=== PATIENT | female | born 1955 | race Two or more races ===

== ENCOUNTER 2017-12-15 13:07 | Emergency (ER) | payer MEDICAID ==
[~2017-12-15] VITALS: Ht 172.7 cm; Wt 76.2 kg
[~2017-12-15 13:07] MED LIST: ALPR0.5T7 PO; AMLO10TA2 PO; ASPI81CH43 PO; GLIM4TAB42 PO; HYDR25TA35 PO; LEVO-28 PO; METO25TA5 PO; SIMV-8 PO
[2017-12-15] MEDS ORDERED: SODIUM CHLORIDE 0.9% 500 ML IV ONE (14:18)
[2017-12-15 14:46] LABS: Basophils # (auto) 0.1 uL; Basophils % (auto) 0.7 % (0.0-2.0); Eosinophils # (auto) 0.8 uL; Eosinophils % (auto) 7.1 % (0.0-7.0); Hematocrit 30.8 % (36.0-46.0); Hemoglobin 10.1 g/dL (12.2-16.2); Lymphocytes # (auto) 2.1 uL; Lymphocytes % (auto) 17.2 % (10.0-50.0); Mean Corpuscular Hemoglobin 31.3 pg (28.0-32.0); Mean Corpuscular Hgb Conc. 32.7 g/dL (32.0-36.0); Mean Corpuscular Volume 95.7 fL (80.0-100.0); Monocytes # (auto) 0.8 uL; Monocytes % (auto) 6.4 % (0.0-12.0); Neutrophils # (auto) 8.2 uL; Neutrophils % (auto) 68.6 % (37.0-80.0); Platelet Count (auto) 336 10^3/uL (140-450); Red Blood Cells 3.22 10^6/uL (4.0-5.20); Red Cell Distribution Width 14.5 % (11.8-14.3)
[2017-12-15 15:10] LABS: Alanine Aminotransferase 14 U/L (13-56); Albumin 3.1 g/dL (3.4-5.0); Alkaline Phosphatase 274 U/L (45-117); Anion Gap 17 (5-15); Aspartate Aminotransferase 9 U/L (15-37); BUN/Creatinine Ratio 9.4; Bilirubin, Total 0.4 mg/dL (0.2-1.0); Blood Urea Nitrogen 73 mg/dL (7-18); Calcium 7.9 mg/dL (8.5-10.1); Carbon Dioxide 23 mmol/L (21-32); Chloride 100 mmol/L (98-107); GFR African American 7 mL/min; GFR Non-African American 6 mL/min; Glucose 90 mg/dL (74-106); Magnesium 2.8 mg/dL (1.6-2.6); Potassium 5.1 mmol/L (3.5-5.1); Sodium 140 mmol/L (136-145); Total Protein 8.2 g/dL (6.4-8.2)
[2017-12-15 19:35] VITALS: BP 157/71
== END 2017-12-15 19:46 | disposition home or self-care (01) ==
LOC: ER 13:07 → EDBD 13:07 → ER 19:46
DX: S70.01XA Contusion of right hip, initial encounter (principal); I16.0 Hypertensive urgency; N18.6 End stage renal disease; J44.9 Chronic obstructive pulmonary disease, unspecified; I50.9 Heart failure, unspecified; E78.5 Hyperlipidemia, unspecified; Z90.49 Acquired absence of other specified parts of digestive tract; Z79.82 Long term (current) use of aspirin; X58.XXXA Exposure to other specified factors, initial encounter; Y93.89 Activity, other specified; Y92.89 Other specified places as the place of occurrence of the external cause; Y99.8 Other external cause status
CPT/HCPCS: 36415; 71045; 73502; 80053; 83735; 84484; 85025; 93005; 94761

== ENCOUNTER 2018-03-30 14:39 | Inpatient (IN) | payer MEDICARE, MEDICAID ==
[~2018-03-30] VITALS: Ht 152.4 cm; Wt 77.9 kg
[~2018-03-30 14:39] MED LIST changes: -ALPR0.5T7 PO; +CARB25TA75 PO; +CARV12.544 PO; +CINA30TA2 PO; +FLUO20CA19 PO; +FURO40TA4 PO; +GABA300C10 PO; -HYDR25TA35 PO; +INSU70IN3 SC; -LEVO-28 PO; +LIDO2.5C3 TOP; +LORA2TAB89 PO; +LOSA50TA6 PO; +METO2.5T11 PO; -METO25TA5 PO; +OLAN5TAB30 PO; +SEVE800T8 PO; +TOPI50TA53 PO; +TRAM50TA2 PO
[2018-03-30 15:42] LABS: Basophils # (auto) 0.1 uL; Basophils % (auto) 0.6 % (0.0-2.0); Eosinophils # (auto) 0.7 uL; Eosinophils % (auto) 5.5 % (0.0-7.0); Hematocrit 32.3 % (36.0-46.0); Hemoglobin 10.8 g/dL (12.2-16.2); Lymphocytes # (auto) 1.6 uL; Lymphocytes % (auto) 12.6 % (10.0-50.0); Mean Corpuscular Hemoglobin 31.6 pg (28.0-32.0); Mean Corpuscular Hgb Conc. 33.3 g/dL (32.0-36.0); Mean Corpuscular Volume 94.8 fL (80.0-100.0); Monocytes # (auto) 0.7 uL; Monocytes % (auto) 5.4 % (0.0-12.0); Neutrophils # (auto) 9.7 uL; Neutrophils % (auto) 75.9 % (37.0-80.0); Platelet Count (auto) 295 10^3/uL (140-450); Red Blood Cells 3.41 10^6/uL (4.0-5.20); Red Cell Distribution Width 15.4 % (11.8-14.3); White Blood Cell 12.8 10^3/uL (4.4-10.8)
[2018-03-30 16:00] LABS: Alanine Aminotransferase 9 U/L (13-56); Albumin 3.4 g/dL (3.4-5.0); Alkaline Phosphatase 429 U/L (45-117); Anion Gap 10 (5-15); Aspartate Aminotransferase 8 U/L (15-37); BUN/Creatinine Ratio 7.7; Bilirubin, Total 0.3 mg/dL (0.2-1.0); Blood Urea Nitrogen 37 mg/dL (7-18); Carbon Dioxide 30 mmol/L (21-32); Chloride 97 mmol/L (98-107); GFR African American 12 mL/min; GFR Non-African American 10 mL/min; Glucose 101 mg/dL (74-106); Potassium 4.3 mmol/L (3.5-5.1); Sodium 137 mmol/L (136-145); Total Protein 8.8 g/dL (6.4-8.2)
[2018-03-30] MEDS ORDERED: cloNIDine HCL 0.1 MG TAB PO PRN (18:45)
[2018-03-30] MEDS ORDERED: CARVEDILOL 12.5 MG TAB PO ONE (18:45)
[2018-03-30] MEDS ORDERED: FUROSEMIDE 20 MG/2 ML VIAL IV ONE (20:45)
[2018-03-30] MEDS ORDERED: HYDROcodone-ACET 5/325MG TAB PO PRN (20:45)
[2018-03-30] MEDS ORDERED: TEMAZEPAM 15 MG CAP PO PRN (20:45)
[2018-03-30] MEDS ORDERED: ENALAPRILAT 1.25 MG/ML-1ML VIAL IV ONE ×2 (20:45→21:51)
[2018-03-30] MEDS ORDERED: ACETAMINOPHEN 325 MG TAB PO PRN (20:45)
[2018-03-30] MEDS ORDERED: MORPHINE SULFATE 8mg/ml INJ SDV IV PRN (20:45)
[2018-03-30] MEDS ORDERED: NITROGLYCERIN 0.4 MG SL TAB SL PRN (20:45)
[2018-03-30] MEDS ORDERED: DEXTROSE (50%) 50ML SYRG IV PRN (20:45)
[2018-03-30] MEDS ORDERED: LORazepam 0.5 MG TAB PO PRN (21:30)
[2018-03-30] MEDS ORDERED: ALBUTEROL SULF 2.5 MG/0.5ML(0.5%) NEB SOLN NEB PRN (21:30)
[2018-03-30] MEDS ORDERED: cefTRIAXone 1GM/10ml IVPUSH 10 ML IV ONE (21:30)
[2018-03-30] MEDS ORDERED: PATIENTS OWN MEDICATION (simvastatin 20 MG) PO SCH (22:00)
[2018-03-30 22:35] VITALS: BP 166/72
[2018-03-30 22:42] VITALS: BP 178/87
[2018-03-30] MEDS: GABAPENTIN 300 MG CAP PO SCH (23:39)
[2018-03-30] MEDS: CARVEDILOL 12.5 MG TAB PO SCH (23:39)
[2018-03-30] MEDS: TOPIRAMATE 25 MG TAB PO SCH (23:39)
[2018-03-30] MEDS: CARBIDOPA W LEVODOPA 25/100mg TABLET PO SCH (23:39)
[2018-03-31] MEDS: ACCU-CHEK COMFORT CURVE STRIP VI SCH ×3 (00:20→11:36)
[2018-03-31] MEDS: InsuLIN REG 1unit/0.01ml Soln (100units/ml) SC SCH ×3 (00:24→11:40)
[2018-03-31 05:15] VITALS: BP 134/67
[2018-03-31] MEDS: CARBIDOPA W LEVODOPA 25/100mg TABLET PO SCH ×2 (05:29→15:10)
[2018-03-31] MEDS ORDERED: FUROSEMIDE 40 MG TAB PO SCH (06:00)
[2018-03-31 07:02] LABS: Basophils # (auto) 0.1 uL; Basophils % (auto) 0.9 % (0.0-2.0); Eosinophils # (auto) 0.7 uL; Eosinophils % (auto) 6.5 % (0.0-7.0); Hematocrit 31.4 % (36.0-46.0); Hemoglobin 10.3 g/dL (12.2-16.2); Lymphocytes # (auto) 2.3 uL; Lymphocytes % (auto) 21.3 % (10.0-50.0); Mean Corpuscular Hemoglobin 31.8 pg (28.0-32.0); Mean Corpuscular Hgb Conc. 32.8 g/dL (32.0-36.0); Monocytes # (auto) 0.8 uL; Monocytes % (auto) 7.1 % (0.0-12.0); Neutrophils % (auto) 64.2 % (37.0-80.0); Nucleated Red Blood Cells % 0.1 %; Platelet Count (auto) 304 10^3/uL (140-450); Red Blood Cells 3.24 10^6/uL (4.0-5.20); Red Cell Distribution Width 15.7 % (11.8-14.3)
[2018-03-31 07:42] LABS: Albumin 2.9 g/dL (3.4-5.0); BUN/Creatinine Ratio 8.2; Bilirubin, Total 0.3 mg/dL (0.2-1.0); Calcium 8.3 mg/dL (8.5-10.1); Potassium 4.9 mmol/L (3.5-5.1); Total Protein 7.8 g/dL (6.4-8.2)
[2018-03-31] MEDS ORDERED: EPOETIN ALFA 10,000 UNIT/1 ML VIAL IV ONE (08:00)
[2018-03-31] MEDS: SEVELAMER 800 MG TAB PO SCH ×2 (08:32→12:23)
[2018-03-31 09:00] VITALS: BP 142/67
[2018-03-31] MEDS ORDERED: PANTOPRAZOLE 40 MG TAB PO SCH (10:00)
[2018-03-31] MEDS ORDERED: LOSARTAN POTASSIUM 50 MG TAB PO SCH (10:00)
[2018-03-31] MEDS ORDERED: amLODIPine BESYLATE 5 MG TAB PO SCH (10:00)
[2018-03-31] MEDS: GABAPENTIN 300 MG CAP PO SCH (11:33)
[2018-03-31] MEDS: CARVEDILOL 12.5 MG TAB PO SCH (11:34)
[2018-03-31] MEDS: TOPIRAMATE 25 MG TAB PO SCH (11:35)
[2018-03-31 12:46] VITALS: BP 154/72
[2018-03-31 13:00] VITALS: BP 196/82
[2018-03-31 17:00] VITALS: BP 157/78
[2018-03-31] MEDS ORDERED: PRAVASTATIN SODIUM 20 MG TAB PO SCH (22:00)
[2018-03-31] MEDS ORDERED: cefTRIAXone 1GM/10ml IVPUSH 10 ML IV SCH (22:00)
== END 2018-03-31 16:20 | disposition home or self-care (01) | DRG 291 ==
LOC: EDBD 14:39 → ER 14:39 → TELE 14:40 → TELE-WESTW 22:26
PROVIDERS: ADMIT Nurse Practitioner; ATTEND Internal Medicine
PROC: 5A1D70Z Performance of Urinary Filtration, Intermittent, Less than 6 Hours Per Day (ICD-10-PCS; principal; 2018-03-31)
DX: I13.2 Hypertensive heart and chronic kidney disease with heart failure and with stage 5 chronic kidney disease, or end stage renal disease (principal); I50.33 Acute on chronic diastolic (congestive) heart failure; N18.6 End stage renal disease; E11.22 Type 2 diabetes mellitus with diabetic chronic kidney disease; E11.319 Type 2 diabetes mellitus with unspecified diabetic retinopathy without macular edema; R65.10 Systemic inflammatory response syndrome (SIRS) of non-infectious origin without acute organ dysfunction; D72.829 Elevated white blood cell count, unspecified; E78.5 Hyperlipidemia, unspecified; J44.9 Chronic obstructive pulmonary disease, unspecified; Z82.0 Family history of epilepsy and other diseases of the nervous system; Z82.49 Family history of ischemic heart disease and other diseases of the circulatory system; Z99.2 Dependence on renal dialysis; Z83.3 Family history of diabetes mellitus; Z90.49 Acquired absence of other specified parts of digestive tract
CPT/HCPCS: 36415; 71045; 80053; 82962; 83605; 83880; 84484; 85025; 87040; 87081; 90935; 93005; 96374; 96375; J0885; J1815

== ENCOUNTER 2018-06-30 13:53 | Inpatient (IN) | payer MEDICARE, MEDICAID ==
[~2018-06-30] VITALS: Ht 157.5 cm; Wt 80.9 kg
[~2018-06-30 13:53] MED LIST changes: -INSU70IN3 SC; -LIDO2.5C3 TOP
[2018-06-30 15:34] LABS: Basophils # (auto) 0.1 uL; Basophils % (auto) 0.5 % (0.0-2.0); Eosinophils # (auto) 0.5 uL; Eosinophils % (auto) 4.1 % (0.0-7.0); Hematocrit 27.1 % (36.0-46.0); Lymphocytes # (auto) 1.9 uL; Lymphocytes % (auto) 16.2 % (10.0-50.0); Mean Corpuscular Hemoglobin 31.6 pg (28.0-32.0); Mean Corpuscular Hgb Conc. 33.4 g/dL (32.0-36.0); Mean Corpuscular Volume 94.8 fL (80.0-100.0); Monocytes # (auto) 0.9 uL; Neutrophils # (auto) 8.4 uL; Neutrophils % (auto) 71.2 % (37.0-80.0); Platelet Count (auto) 319 10^3/uL (140-450); Red Blood Cells 2.86 10^6/uL (4.0-5.20); White Blood Cell 11.8 10^3/uL (4.4-10.8)
[2018-06-30 15:53] LABS: Albumin 2.9 g/dL (3.4-5.0); BUN/Creatinine Ratio 7.1; Bilirubin, Total 0.3 mg/dL (0.2-1.0); Calcium 6.6 mg/dL (8.5-10.1); Potassium 4.3 mmol/L (3.5-5.1); Total Protein 8.5 g/dL (6.4-8.2)
[2018-06-30] MEDS ORDERED: HYDROcodone-ACET 5/325MG TAB PO ONE (17:15)
[2018-06-30] MEDS ORDERED: LORazepam 0.5 MG TAB PO ONE ×2 (19:15→19:30)
[2018-06-30] MEDS ORDERED: VANCOMYCIN PER PHARMACY 0 MG IV SCH (19:15)
[2018-06-30] MEDS ORDERED: cefTRIAXone 1GM/10ml IVPUSH 10 ML IV ONE (19:15)
[2018-06-30] MEDS ORDERED: DEXTROSE (50%) 50ML SYRG IV PRN (19:30)
[2018-06-30] MEDS ORDERED: ONDANSETRON HCL 4 MG/2 ML VIAL IV PRN (19:45)
[2018-06-30] MEDS ORDERED: MORPHINE SULF INJ 2 MG/ML SYRINGE 1ML IV PRN ×2 (19:45)
[2018-06-30] MEDS ORDERED: TEMAZEPAM 15 MG CAP PO PRN (19:45)
[2018-06-30] MEDS ORDERED: DOCUSATE SOD 100 MG CAP PO PRN (19:45)
[2018-06-30] MEDS ORDERED: NITROGLYCERIN 0.4 MG SL TAB SL PRN (19:45)
[2018-06-30] MEDS ORDERED: ACETAMINOPHEN 325 MG TAB PO PRN (19:45)
[2018-06-30] MEDS ORDERED: VANCOMYCIN 1GM/250ML 250 ML IV ONE (20:00)
[2018-06-30] MEDS: FAMOTIDINE 20 MG TAB PO SCH (20:40)
[2018-06-30] MEDS: traMADol HCL 50 MG TAB PO PRN (20:46)
[2018-06-30] MEDS: CARVEDILOL 12.5 MG TAB PO SCH (21:22)
[2018-06-30] MEDS: SODIUM CHLOR 0.9% PF (SALINE LOCK) 10ML VIAL/SYR IV SCH (21:22)
[2018-06-30] MEDS: ASCORBIC ACID 500 MG TAB PO SCH (21:23)
[2018-06-30] MEDS: CARBIDOPA W LEVODOPA 25/100mg TABLET PO SCH (21:23)
[2018-06-30] MEDS: GABAPENTIN 100 MG CAP PO SCH (21:23)
[2018-06-30] MEDS: ATORVASTATIN 20 MG TAB PO SCH (21:23)
[2018-06-30] MEDS: OLANZapine 5 MG TAB PO SCH (21:23)
[2018-06-30] MEDS: TOPIRAMATE 25 MG TAB PO SCH (21:23)
[2018-06-30] MEDS: InsuLIN REG 1unit/0.01ml Soln (100units/ml) SC SCH (21:40)
[2018-06-30] MEDS: ACCU-CHEK COMFORT CURVE STRIP VI SCH (21:41)
[2018-07-01 05:00] VITALS: BP 161/66
[2018-07-01] MEDS: FUROSEMIDE 40 MG TAB PO SCH ×2 (05:12→18:09)
[2018-07-01] MEDS: CARBIDOPA W LEVODOPA 25/100mg TABLET PO SCH ×3 (05:13→22:10)
[2018-07-01] MEDS: GABAPENTIN 100 MG CAP PO SCH ×3 (05:13→22:10)
[2018-07-01] MEDS: SODIUM CHLOR 0.9% PF (SALINE LOCK) 10ML VIAL/SYR IV SCH ×3 (05:14→22:09)
[2018-07-01] MEDS: InsuLIN REG 1unit/0.01ml Soln (100units/ml) SC SCH ×4 (05:15→22:11)
[2018-07-01] MEDS: GLIMEPIRIDE 2 MG TAB PO SCH (05:15)
[2018-07-01] MEDS: ACCU-CHEK COMFORT CURVE STRIP VI SCH ×4 (05:16→22:11)
[2018-07-01 06:37] LABS: Basophils # (auto) 0.1 uL; Basophils % (auto) 0.5 % (0.0-2.0); Eosinophils # (auto) 0.5 uL; Hemoglobin 7.8 g/dL (12.2-16.2); Monocytes # (auto) 0.8 uL
[2018-07-01 06:40] LABS: Eosinophils % (auto) 4.8 % (0.0-7.0); Hematocrit 23.1 % (36.0-46.0); Lymphocytes % (auto) 17.6 % (10.0-50.0); Mean Corpuscular Hemoglobin 31.7 pg (28.0-32.0); Mean Corpuscular Hgb Conc. 33.6 g/dL (32.0-36.0); Mean Corpuscular Volume 94.2 fL (80.0-100.0); Monocytes % (auto) 6.8 % (0.0-12.0); Neutrophils % (auto) 70.3 % (37.0-80.0); Nucleated Red Blood Cells % 0.1 %; Platelet Count (auto) 286 10^3/uL (140-450); Red Blood Cells 2.45 10^6/uL (4.0-5.20); Red Cell Distribution Width 14.3 % (11.8-14.3); White Blood Cell 11.4 10^3/uL (4.4-10.8)
[2018-07-01 06:52] LABS: Alanine Aminotransferase < 6 U/L (13-56); Albumin 2.6 g/dL (3.4-5.0); Alkaline Phosphatase 510 U/L (45-117); Anion Gap 12 (5-15); Aspartate Aminotransferase 8 U/L (15-37); BUN/Creatinine Ratio 7.5; Bilirubin, Total 0.3 mg/dL (0.2-1.0); Blood Urea Nitrogen 57 mg/dL (7-18); Calcium 6.6 mg/dL (8.5-10.1); Carbon Dioxide 27 mmol/L (21-32); Chloride 99 mmol/L (98-107); GFR African American 7 mL/min; GFR Non-African American 6 mL/min; Glucose 58 mg/dL (74-106); Potassium 4.4 mmol/L (3.5-5.1); Sodium 138 mmol/L (136-145); Total Protein 7.5 g/dL (6.4-8.2)
[2018-07-01] MEDS: Glucerna Carbsteady SHAKE Vanilla 8oz PO SCH ×3 (08:00→18:00)
[2018-07-01] MEDS ORDERED: EPOETIN ALFA 10,000 UNIT/1 ML VIAL IV ONE (08:15)
[2018-07-01] MEDS ORDERED: SODIUM CHL 0.9% 1000 ML BAG XX ONE (08:15)
[2018-07-01] MEDS: SEVELAMER 800 MG TAB PO SCH ×3 (08:53→18:08)
[2018-07-01] MEDS: cefTRIAXone 1GM/10ml IVPUSH 10 ML IV SCH (08:53)
[2018-07-01 09:00] VITALS: BP 114/58
[2018-07-01] MEDS: traMADol HCL 50 MG TAB PO PRN ×2 (09:12→17:04)
[2018-07-01] MEDS: LORazepam 0.5 MG TAB PO PRN (09:59)
[2018-07-01] MEDS ORDERED: CINACALCET HYDROCHLORIDE 30 MG TAB PO SCH (10:00)
[2018-07-01] MEDS: amLODIPine BESYLATE 5 MG TAB PO SCH ×2 (10:00→13:58)
[2018-07-01] MEDS: LOSARTAN POTASSIUM 50 MG TAB PO SCH ×2 (10:00→13:57)
[2018-07-01] MEDS: CARVEDILOL 12.5 MG TAB PO SCH ×2 (10:00→22:09)
[2018-07-01 13:00] VITALS: BP 162/69
[2018-07-01 13:48] VITALS: BP 178/78
[2018-07-01] MEDS: ZINC SULFATE 220mg CAP or TAB PO SCH (13:53)
[2018-07-01] MEDS: METOLAZONE 5 MG TAB PO SCH (13:53)
[2018-07-01] MEDS: FLUoxetine HCL 20 MG CAP PO SCH (13:53)
[2018-07-01] MEDS: ASCORBIC ACID 500 MG TAB PO SCH ×2 (13:54→22:10)
[2018-07-01] MEDS: ASPirin-EC 81 mg tab PO SCH (13:54)
[2018-07-01] MEDS: FAMOTIDINE 20 MG TAB PO SCH (13:54)
[2018-07-01] MEDS: TOPIRAMATE 25 MG TAB PO SCH ×2 (13:55→22:10)
[2018-07-01 17:00] VITALS: BP 149/53
[2018-07-01] MEDS: MULTIPLE VITAMIN TAB PO SCH (18:08)
[2018-07-01 22:00] VITALS: BP 147/68
[2018-07-01] MEDS: ATORVASTATIN 20 MG TAB PO SCH (22:10)
[2018-07-01] MEDS: OLANZapine 5 MG TAB PO SCH (22:10)
[2018-07-02 04:48] LABS: Basophils # (auto) 0.1 uL; Eosinophils # (auto) 0.5 uL; Hemoglobin 8.4 g/dL (12.2-16.2); Monocytes # (auto) 0.9 uL
[2018-07-02 04:51] LABS: Basophils % (auto) 0.6 % (0.0-2.0); Eosinophils % (auto) 5.1 % (0.0-7.0); Hematocrit 24.6 % (36.0-46.0); Lymphocytes % (auto) 19.3 % (10.0-50.0); Mean Corpuscular Volume 94.1 fL (80.0-100.0); Monocytes % (auto) 8.5 % (0.0-12.0); Neutrophils % (auto) 66.5 % (37.0-80.0); Platelet Count (auto) 306 10^3/uL (140-450); Red Blood Cells 2.62 10^6/uL (4.0-5.20); Red Cell Distribution Width 13.9 % (11.8-14.3); White Blood Cell 10.5 10^3/uL (4.4-10.8)
[2018-07-02 05:00] VITALS: BP 160/89
[2018-07-02 05:18] LABS: Albumin 2.5 g/dL (3.4-5.0); BUN/Creatinine Ratio 6.9; Bilirubin, Total 0.2 mg/dL (0.2-1.0); Calcium 6.9 mg/dL (8.5-10.1); Phosphorus 4.5 mg/dL (2.5-4.90); Potassium 3.9 mmol/L (3.5-5.1); Total Protein 7.6 g/dL (6.4-8.2)
[2018-07-02] MEDS: FUROSEMIDE 40 MG TAB PO SCH ×2 (05:37→18:30)
[2018-07-02] MEDS: SODIUM CHLOR 0.9% PF (SALINE LOCK) 10ML VIAL/SYR IV SCH ×3 (05:37→22:26)
[2018-07-02] MEDS: GABAPENTIN 100 MG CAP PO SCH ×3 (05:38→22:25)
[2018-07-02] MEDS: CARBIDOPA W LEVODOPA 25/100mg TABLET PO SCH ×3 (05:38→22:25)
[2018-07-02] MEDS: ACCU-CHEK COMFORT CURVE STRIP VI SCH ×4 (06:12→22:26)
[2018-07-02] MEDS: GLIMEPIRIDE 2 MG TAB PO SCH (06:12)
[2018-07-02] MEDS: LEVOTHYROXINE SODIUM 112 MCG TAB PO SCH (06:12)
[2018-07-02] MEDS: InsuLIN REG 1unit/0.01ml Soln (100units/ml) SC SCH ×4 (06:12→22:00)
[2018-07-02] MEDS: Glucerna Carbsteady SHAKE Vanilla 8oz PO SCH ×5 (08:00→18:00)
[2018-07-02 08:35] VITALS: BP 109/61
[2018-07-02] MEDS: SEVELAMER 800 MG TAB PO SCH ×3 (08:57→18:29)
[2018-07-02] MEDS: cefTRIAXone 1GM/10ml IVPUSH 10 ML IV SCH (09:10)
[2018-07-02] MEDS: amLODIPine BESYLATE 5 MG TAB PO SCH (09:11)
[2018-07-02] MEDS: ASPirin-EC 81 mg tab PO SCH (09:11)
[2018-07-02] MEDS: ZINC SULFATE 220mg CAP or TAB PO SCH (09:11)
[2018-07-02] MEDS: METOLAZONE 5 MG TAB PO SCH (09:12)
[2018-07-02] MEDS: ASCORBIC ACID 500 MG TAB PO SCH ×2 (09:12→22:25)
[2018-07-02] MEDS: TOPIRAMATE 25 MG TAB PO SCH ×2 (09:13→22:24)
[2018-07-02] MEDS: MULTIPLE VITAMIN TAB PO SCH (09:13)
[2018-07-02] MEDS: CARVEDILOL 12.5 MG TAB PO SCH ×2 (09:14→22:25)
[2018-07-02] MEDS: FLUoxetine HCL 20 MG CAP PO SCH (09:15)
[2018-07-02] MEDS: FAMOTIDINE 20 MG TAB PO SCH ×2 (09:16→09:17)
[2018-07-02] MEDS: HYDROcodone-ACET 5/325MG TAB PO PRN (11:39)
[2018-07-02] MEDS: LORazepam 0.5 MG TAB PO PRN (12:47)
[2018-07-02 16:53] VITALS: BP 109/58
[2018-07-02 22:00] VITALS: BP 111/58
[2018-07-02] MEDS: OLANZapine 5 MG TAB PO SCH (22:24)
[2018-07-02] MEDS: ATORVASTATIN 20 MG TAB PO SCH (22:25)
[2018-07-03 05:00] VITALS: BP 121/68
[2018-07-03 05:30] LABS: Eosinophils # (auto) 0.7 uL; Hemoglobin 8.1 g/dL (12.2-16.2); Lymphocytes # (auto) 2.4 uL; Mean Corpuscular Volume 93.2 fL (80.0-100.0); Monocytes # (auto) 0.8 uL; Red Cell Distribution Width 13.9 % (11.8-14.3)
[2018-07-03 05:32] LABS: Basophils # (auto) 0.1 uL; Basophils % (auto) 0.5 % (0.0-2.0); Eosinophils % (auto) 6.4 % (0.0-7.0); Hematocrit 23.9 % (36.0-46.0); Lymphocytes % (auto) 21.3 % (10.0-50.0); Mean Corpuscular Hemoglobin 31.7 pg (28.0-32.0); Monocytes % (auto) 6.8 % (0.0-12.0); Neutrophils # (auto) 7.2 uL; Platelet Count (auto) 308 10^3/uL (140-450); Red Blood Cells 2.56 10^6/uL (4.0-5.20); White Blood Cell 11.1 10^3/uL (4.4-10.8)
[2018-07-03] MEDS: SODIUM CHLOR 0.9% PF (SALINE LOCK) 10ML VIAL/SYR IV SCH (05:47)
[2018-07-03] MEDS: FUROSEMIDE 40 MG TAB PO SCH (05:48)
[2018-07-03] MEDS: GABAPENTIN 100 MG CAP PO SCH (05:48)
[2018-07-03] MEDS: CARBIDOPA W LEVODOPA 25/100mg TABLET PO SCH (05:48)
[2018-07-03] MEDS: ACCU-CHEK COMFORT CURVE STRIP VI SCH ×2 (05:49→12:03)
[2018-07-03] MEDS: InsuLIN REG 1unit/0.01ml Soln (100units/ml) SC SCH ×2 (05:49→12:00)
[2018-07-03 05:52] LABS: Albumin 2.5 g/dL (3.4-5.0); BUN/Creatinine Ratio 8.5; Bilirubin, Total 0.2 mg/dL (0.2-1.0); Potassium 4.5 mmol/L (3.5-5.1); Total Protein 7.5 g/dL (6.4-8.2)
[2018-07-03] MEDS: HYDROcodone-ACET 5/325MG TAB PO PRN ×2 (06:04→13:33)
[2018-07-03] MEDS: LEVOTHYROXINE SODIUM 112 MCG TAB PO SCH (06:15)
[2018-07-03] MEDS: GLIMEPIRIDE 2 MG TAB PO SCH (06:34)
[2018-07-03 08:00] VITALS: BP 124/55
[2018-07-03] MEDS: Glucerna Carbsteady SHAKE Vanilla 8oz PO SCH ×2 (08:00→12:00)
[2018-07-03] MEDS: SEVELAMER 800 MG TAB PO SCH ×2 (08:12→13:30)
[2018-07-03] MEDS ORDERED: SODIUM CHL 0.9% 1000 ML BAG XX ONE (08:30)
[2018-07-03] MEDS ORDERED: EPOETIN ALFA 10,000 UNIT/1 ML VIAL IV ONE (08:30)
[2018-07-03] MEDS: cefTRIAXone 1GM/10ml IVPUSH 10 ML IV SCH (08:46)
[2018-07-03] MEDS: LOSARTAN POTASSIUM 50 MG TAB PO SCH ×2 (10:00→13:30)
[2018-07-03] MEDS: CARVEDILOL 12.5 MG TAB PO SCH ×2 (10:00→13:32)
[2018-07-03] MEDS: amLODIPine BESYLATE 5 MG TAB PO SCH ×2 (10:00→13:31)
[2018-07-03] MEDS: ZINC SULFATE 220mg CAP or TAB PO SCH ×2 (10:26→13:29)
[2018-07-03] MEDS: ASPirin-EC 81 mg tab PO SCH ×2 (10:26→13:31)
[2018-07-03] MEDS: FAMOTIDINE 20 MG TAB PO SCH ×2 (10:26→13:30)
[2018-07-03] MEDS: FLUoxetine HCL 20 MG CAP PO SCH ×2 (10:26→13:31)
[2018-07-03] MEDS: MULTIPLE VITAMIN TAB PO SCH ×2 (10:26→13:30)
[2018-07-03] MEDS: TOPIRAMATE 25 MG TAB PO SCH ×2 (10:27→13:31)
[2018-07-03] MEDS: ASCORBIC ACID 500 MG TAB PO SCH ×2 (10:27→13:30)
[2018-07-03] MEDS: METOLAZONE 5 MG TAB PO SCH ×2 (10:27→13:29)
[2018-07-03 12:00] VITALS: BP 122/42
[2018-07-03 14:00] VITALS: BP 156/87
[2018-07-03 14:55] VITALS: BP 186/67
== END 2018-07-03 14:40 | disposition home health service (06) | DRG 871 ==
LOC: ER 13:53 → TELE 13:54 → TELE-WESTW 22:11
PROVIDERS: ADMIT Internal Medicine; ATTEND Family Medicine
PROC: 5A1D70Z Performance of Urinary Filtration, Intermittent, Less than 6 Hours Per Day (ICD-10-PCS; principal; 2018-07-01)
PROC: 5A1D70Z Performance of Urinary Filtration, Intermittent, Less than 6 Hours Per Day (ICD-10-PCS; 2018-07-03)
DX: A41.9 Sepsis, unspecified organism (principal); N18.6 End stage renal disease; E43 Unspecified severe protein-calorie malnutrition; L03.114 Cellulitis of left upper limb; I13.2 Hypertensive heart and chronic kidney disease with heart failure and with stage 5 chronic kidney disease, or end stage renal disease; J98.11 Atelectasis; Z99.2 Dependence on renal dialysis; D63.8 Anemia in other chronic diseases classified elsewhere; E03.9 Hypothyroidism, unspecified; E11.21 Type 2 diabetes mellitus with diabetic nephropathy; I50.9 Heart failure, unspecified; E11.40 Type 2 diabetes mellitus with diabetic neuropathy, unspecified; E11.22 Type 2 diabetes mellitus with diabetic chronic kidney disease; E78.00 Pure hypercholesterolemia, unspecified; L08.9 Local infection of the skin and subcutaneous tissue, unspecified; E83.51 Hypocalcemia; F32.9 Major depressive disorder, single episode, unspecified; G20 Parkinson's disease; J44.9 Chronic obstructive pulmonary disease, unspecified; Z82.0 Family history of epilepsy and other diseases of the nervous system; Z82.49 Family history of ischemic heart disease and other diseases of the circulatory system; Z83.3 Family history of diabetes mellitus; Z99.81 Dependence on supplemental oxygen; Z79.899 Other long term (current) drug therapy; Z79.82 Long term (current) use of aspirin; Z68.32 Body mass index [BMI] 32.0-32.9, adult
CPT/HCPCS: 36415; 71045; 73200; 80053; 80202; 82962; 83036; 83605; 84100; 84443; 85025; 87040; 87081; 87205; 90935; 93306; 96365; 96375; A6257; J0696; J0885; J1642; J1815